=== PATIENT | female | born 1980 | race American Indian/Alaskan Native ===

== ENCOUNTER 2022-03-16 12:57 | Emergency (ER) | payer SELFPAY ==
[2022-03-16 13:14] VITALS: BP 137/86
--- NOTE | 2022-03-16 13:57 | XRay Report ---
RIGHT HAND 3 VIEW(S) INDICATION / CLINICAL INFORMATION: sprain finger COMPARISON: None available. FINDINGS: BONES / JOINT(S): Acute mildly displaced fracture involving base of little finger proximal phalanx wi thout definite intra-articular extension. No significant arthritis. SOFT TISSUES: No significant abnormality. ADDITIONAL FINDINGS: None. IMPRESSION: 1. Acute fracture base of little finger proximal phalanx Signer Name: Tristan Lopes MD Signed: 03/16/2022 1:52 PM Workstation Name: [email or web address]
[2022-03-16] MEDS ORDERED: HYDROcodone/ACETAMINOPHEN 10-325MG TAB PO ONE (14:04)
--- NOTE | 2022-03-16 14:05 | Emergency Department Report ---
Upper Extremity - HPI Chief Complaint: Extremity Injury, Upper Stated Complaint: PINKY FINGER INJURY Time Seen by Provider: 03/16/22 13:18 Upper Extremity: Right Hand Occurred When: Today Mechanism: Hit with Object Severity: mild Symptoms: Yes Pain with Movement, Yes Deformity (Swelling), Yes Limited Range of Movement, Yes Swelling, No Numbness (Limited by pain), No Weakness, No Bruising/Ecchymosis, No Laceration or Abrasion Other History: Patient is a 41-year-old that comes to the emergency room with right fifth knuckle pain. She states that she hit her hand on a cabinet today. She denies any other injury. Patient complaining of pain is limiting her movement. She has distal sensation, cap refill is intact. Wrist has full range of motion as is elbow and shoulder. Patient took nothing for pain prior to arrival in the ER. Patient denies any other injury ED Review of Systems ROS: Stated complaint: PINKY FINGER INJURY Other details as noted in HPI Comment: All other systems reviewed and negative ED Past Medical Hx - Past Medical History Previous Medical History?: Yes Additional medical history: sickle trait, anemia, kidney infection - Surgical History Past Surgical History?: No Additional Surgical History: tubal ligation, hrenia repair, oral, - Family History Family history: no significant - Social History Smoking Status: Current Every Day Smoker Substance Use Type: None Upper Extremity Exam - Exam General: Vital signs noted. No distress. Alert and acting appropriately. Head and Torso: No HEENT Abnormality, No Neck Tenderness, No Chest/Lungs Abnormality, No Abdominal Tenderness, No Back Tenderness Shoulder Exam: Yes Normal Range of Motion in Shoulder, No Shoulder Tenderness, No Clavicle Tenderness, No Shoulder Deformity, No AC Joint Tenderness Arm Exam: No Arm/Humerus Tenderness, No Arm Deformity Elbow: No Elbow Tenderness, No Normal Range of Motion in Elbow, No Elbow Deformity Forearm: No Forearm Tenderness, No Forearm Deformity, No Pain with Pronation, No Pain with Supination Wrist: Yes Normal ROM in Wrist, No Wrist Tenderness, No Wrist Deformity, No Snuffbox Tenderness, No Pain with Axial Thumb Compression Hand: Yes Hand Tenderness, No Hand Deformity, No Digit Tenderness, No Normal ROM in Digit(s), No Digit(s) Deformity, No Tendon Dysfunction CMS Exam: No Broken Skin, No Normal Distal Pulses, No Normal Capillary Refill, No Normal Distal Sensation ED Course Vital Signs 03/16/22 13:12 Temperature 98.7 F Pulse Rate 98 H Respiratory 18 Rate Blood Pressure 137/86 O2 Sat by Pulse 100 Oximetry ED Medical Decision Making - Radiology Data Radiology results: report reviewed, image reviewed POS FX - Medical Decision Making Vital Signs 03/16/22 13:12 Temperature 98.7 F Pulse Rate 98 H Respiratory 18 Rate Blood Pressure 137/86 O2 Sat by Pulse 100 Oximetry XRAY NOTED MEDICATED FOR PAIN NEUROVASC INTACT BEFORE AND AFTER SPLINT BOXERS SPLINT APPLIED SEE RN NOTE DC HOME WITH DC PLAN OF CARE INCLUDING DIET, ACTIVITY, MEDS AND FOLLOW UP. PT VERBALIZES UNDERSTANDING OF PLAN OF CARE - Differential Diagnosis RO FX Critical care attestation.: If time is entered above; I have spent that time in minutes in the direct care of this critically ill patient, excluding procedure time. ED Disposition Clinical Impression: Metacarpal bone fracture Qualifiers: Encounter type: initial encounter Metacarpal bone: fifth Fracture type: closed Metacarpal location: unspecified portion of metacarpal Fracture alignment: nondisplaced Laterality: right Qualified Code(s): S62.306A - Unspecified fracture of fifth metacarpal bone, right hand, initial encounter for closed fracture Disposition: 01 HOME / SELF CARE / HOMELESS Is pt being admited?: No Does the pt Need Aspirin: No Condition: Stable Additional Instructions: KEEP SPLINT IN PLACE UNTIL SEEN BY ORTHO CALL ORTHO FOR FOLLOW UP REFERRAL BELOW ICE/REST/ELEVATE MOTRIN OR TYLENOL FOR PAIN Referrals: JODY TEE MD [Staff Physician] - 3-5 Days Forms: Work/School Release Form(ED) Time of Disposition: 14:05
[2022-03-16] MEDS ORDERED: KETOROLAC 60 MG/2 ML INJ IM ONE (16:23)
== END 2022-03-16 14:50 | disposition home or self-care (01) ==
LOC: ED 12:57
DX: S62.306A Unspecified fracture of fifth metacarpal bone, right hand, initial encounter for closed fracture (principal); F17.200 Nicotine dependence, unspecified, uncomplicated; X58.XXXA Exposure to other specified factors, initial encounter; Y93.89 Activity, other specified; Y92.89 Other specified places as the place of occurrence of the external cause; Y99.8 Other external cause status
CPT/HCPCS: 73130; 96372; 99283; J1885